=== PATIENT | male | born 1960 | race Two or more races ===

== ENCOUNTER 2017-12-24 07:28 | Emergency (ER) | payer OTHER ==
[~2017-12-24] VITALS: Ht 175.3 cm; Wt 92.1 kg
[2017-12-24] MEDS ORDERED: ULTRACET PO (12:53)
== END 2017-12-24 13:22 | disposition home or self-care (01) ==
LOC: ER 07:28
DX: G43.909 Migraine, unspecified, not intractable, without status migrainosus (principal)

== ENCOUNTER 2019-04-29 08:13 | Outpatient (CLI) | payer OTHER ==
[~2019-04-29 08:13] MED LIST: ULTRACET PO
== END 2019-04-29 08:20 | disposition home or self-care (01) ==
LOC: LAB 08:13
DX: R39.15 Urgency of urination (principal); R35.8 Other polyuria; Z12.5 Encounter for screening for malignant neoplasm of prostate; Z12.11 Encounter for screening for malignant neoplasm of colon

== ENCOUNTER 2019-04-30 08:44 | Outpatient (CLI) | payer OTHER | END 2019-04-30 15:00 | disposition home or self-care (01) | LOC: LAB 08:44 | DX: R39.15 Urgency of urination (principal); R35.8 Other polyuria; Z12.5 Encounter for screening for malignant neoplasm of prostate; Z12.11 Encounter for screening for malignant neoplasm of colon ==

== ENCOUNTER 2020-03-09 07:38 | Outpatient (CLI) | payer OTHER | END 2020-03-09 07:45 | disposition home or self-care (01) | LOC: LAB 07:38 | PROVIDERS: ATTEND Internal Medicine Cardiovascular Disease | DX: I10 Essential (primary) hypertension (principal); E11.9 Type 2 diabetes mellitus without complications; E03.8 Other specified hypothyroidism; E78.2 Mixed hyperlipidemia; N40.0 Benign prostatic hyperplasia without lower urinary tract symptoms; E55.9 Vitamin D deficiency, unspecified; J44.9 Chronic obstructive pulmonary disease, unspecified ==

== ENCOUNTER 2020-03-09 09:52 | Outpatient (CLI) | payer OTHER | END 2020-03-09 09:59 | disposition home or self-care (01) | LOC: NUCLEAR 09:52 | PROVIDERS: ATTEND Internal Medicine Cardiovascular Disease | DX: I10 Essential (primary) hypertension (principal) ==

== ENCOUNTER 2020-11-15 07:03 | Outpatient (CLI) | payer OTHER | END 2020-11-15 07:04 | disposition home or self-care (01) | LOC: LAB 07:03 | PROVIDERS: ATTEND Specialist | DX: N40.1 Benign prostatic hyperplasia with lower urinary tract symptoms (principal) ==

== ENCOUNTER 2020-12-08 07:47 | Outpatient (CLI) | payer OTHER | END 2020-12-08 07:54 | disposition home or self-care (01) | LOC: SONOGRAMA 07:47 → MAMO-SONO 08:00 | PROVIDERS: ATTEND Specialist | DX: K76.0 Fatty (change of) liver, not elsewhere classified (principal); Q44.6 Cystic disease of liver ==

== ENCOUNTER → 2020-12-22 07:31 | Outpatient (CLI) | payer OTHER | END | disposition home or self-care (01) | LOC: LAB 07:31 | PROVIDERS: ATTEND Specialist | DX: N40.1 Benign prostatic hyperplasia with lower urinary tract symptoms (principal); N13.39 Other hydronephrosis ==

== ENCOUNTER 2020-12-31 07:15 | Outpatient (CLI) | payer OTHER | END 2020-12-31 07:17 | disposition home or self-care (01) | LOC: TOM 07:15 | PROVIDERS: ATTEND Specialist | DX: N32.3 Diverticulum of bladder (principal); Q44.6 Cystic disease of liver; N13.39 Other hydronephrosis ==

== ENCOUNTER 2021-02-11 16:16 | Emergency (ER) | payer OTHER ==
[~2021-02-11] VITALS: Ht 175.3 cm; Wt 99.3 kg
[2021-02-11] MEDS ORDERED: LISINOPRIL20 MG (16:33)
== END 2021-02-11 21:17 | disposition home or self-care (01) ==
LOC: ER 16:16
DX: N40.0 Benign prostatic hyperplasia without lower urinary tract symptoms (principal); N39.0 Urinary tract infection, site not specified; R19.09 Other intra-abdominal and pelvic swelling, mass and lump

== ENCOUNTER 2021-03-04 08:18 | Outpatient (CLI) | payer OTHER ==
[~2021-03-04 08:18] MED LIST changes: +LISINOPRIL20 MG
== END 2021-03-04 08:20 | disposition home or self-care (01) ==
LOC: LAB 08:18
DX: D68.8 Other specified coagulation defects (principal); Z01.818 Encounter for other preprocedural examination

== ENCOUNTER 2021-03-04 09:03 | Outpatient (CLI) | payer OTHER | END 2021-03-04 09:20 | disposition home or self-care (01) | LOC: RAD 09:03 | DX: I10 Essential (primary) hypertension (principal) ==

== ENCOUNTER → 2021-04-25 07:11 | Outpatient (CLI) | payer OTHER | END | disposition home or self-care (01) | LOC: LAB 07:11 | PROVIDERS: ATTEND Internal Medicine Hematology & Oncology | DX: C67.4 Malignant neoplasm of posterior wall of bladder (principal); N13.30 Unspecified hydronephrosis ==

== ENCOUNTER 2021-04-28 07:11 | Outpatient (CLI) | payer OTHER | END 2021-04-28 07:17 | disposition home or self-care (01) | LOC: LAB 07:11 | DX: C67.4 Malignant neoplasm of posterior wall of bladder (principal); N13.30 Unspecified hydronephrosis ==

== ENCOUNTER 2021-05-23 06:59 | Outpatient (CLI) | payer OTHER | END 2021-05-23 07:00 | disposition home or self-care (01) | LOC: LAB 06:59 | PROVIDERS: ATTEND Internal Medicine Hematology & Oncology | DX: C67.4 Malignant neoplasm of posterior wall of bladder (principal) ==

== ENCOUNTER 2021-05-30 06:35 | Outpatient (CLI) | payer OTHER | END 2021-05-30 06:46 | disposition home or self-care (01) | LOC: LAB 06:35 | PROVIDERS: ATTEND Internal Medicine Hematology & Oncology | DX: C67.4 Malignant neoplasm of posterior wall of bladder (principal) ==

== ENCOUNTER 2021-06-06 06:53 | Outpatient (CLI) | payer OTHER | END 2021-06-06 06:56 | disposition home or self-care (01) | LOC: LAB 06:53 | PROVIDERS: ATTEND Internal Medicine Hematology & Oncology | DX: C67.4 Malignant neoplasm of posterior wall of bladder (principal) ==

== ENCOUNTER 2021-06-13 06:47 | Outpatient (CLI) | payer OTHER | END 2021-06-13 06:51 | disposition home or self-care (01) | LOC: LAB 06:47 | PROVIDERS: ATTEND Internal Medicine Hematology & Oncology | DX: C67.4 Malignant neoplasm of posterior wall of bladder (principal) ==

== ENCOUNTER 2021-06-20 07:04 | Outpatient (CLI) | payer OTHER | END 2021-06-20 07:14 | disposition home or self-care (01) | LOC: LAB 07:04 → CIR.AMB 07:04 → LAB 07:14 | DX: D68.8 Other specified coagulation defects (principal); Z01.818 Encounter for other preprocedural examination ==

== ENCOUNTER 2021-06-27 07:22 | Outpatient (CLI) | payer OTHER | END 2021-06-27 07:23 | disposition home or self-care (01) | LOC: LAB 07:22 | PROVIDERS: ATTEND Internal Medicine Hematology & Oncology | DX: N32.3 Diverticulum of bladder (principal); C67.4 Malignant neoplasm of posterior wall of bladder ==

== ENCOUNTER 2021-07-11 07:05 | Outpatient (CLI) | payer OTHER | END 2021-07-11 07:12 | disposition home or self-care (01) | LOC: LAB 07:05 | PROVIDERS: ATTEND Internal Medicine Hematology & Oncology | DX: C67.4 Malignant neoplasm of posterior wall of bladder (principal) ==

== ENCOUNTER 2021-07-18 06:47 | Outpatient (CLI) | payer OTHER | END 2021-07-18 06:53 | disposition home or self-care (01) | LOC: LAB 06:47 | PROVIDERS: ATTEND Internal Medicine Hematology & Oncology | DX: C67.4 Malignant neoplasm of posterior wall of bladder (principal) ==

== ENCOUNTER 2021-07-25 06:53 | Outpatient (CLI) | payer OTHER | END 2021-07-25 07:05 | disposition home or self-care (01) | LOC: LAB 06:53 | PROVIDERS: ATTEND Internal Medicine Hematology & Oncology | DX: C67.4 Malignant neoplasm of posterior wall of bladder (principal) ==

== ENCOUNTER 2021-08-02 06:35 | Outpatient (CLI) | payer OTHER | END 2021-08-02 07:00 | disposition home or self-care (01) | LOC: TOM 06:35 | PROVIDERS: ATTEND Internal Medicine Hematology & Oncology | DX: C67.4 Malignant neoplasm of posterior wall of bladder (principal); N32.3 Diverticulum of bladder ==

== ENCOUNTER 2021-08-04 07:03 | Outpatient (CLI) | payer OTHER | END 2021-08-04 15:00 | disposition home or self-care (01) | LOC: LAB 07:03 | PROVIDERS: ATTEND Internal Medicine Hematology & Oncology | DX: C67.4 Malignant neoplasm of posterior wall of bladder (principal) ==

== ENCOUNTER 2021-11-21 07:38 | Outpatient (CLI) | payer OTHER | END 2021-11-21 07:40 | disposition home or self-care (01) | LOC: NUCLEAR 07:38 | PROVIDERS: ATTEND Urology | DX: I10 Essential (primary) hypertension (principal) | CPT/HCPCS: 78452; 93017; A9500; J0150 ==

== ENCOUNTER → 2021-12-12 07:24 | Outpatient (CLI) | payer OTHER | END | disposition home or self-care (01) | LOC: LAB 07:24 | PROVIDERS: ATTEND Urology | DX: R31.1 Benign essential microscopic hematuria (principal) ==

== ENCOUNTER 2021-12-27 07:18 | Outpatient (CLI) | payer OTHER | END 2021-12-27 07:29 | disposition home or self-care (01) | LOC: LAB 07:18 | PROVIDERS: ATTEND Radiology Diagnostic Radiology | DX: I10 Essential (primary) hypertension (principal); C67.9 Malignant neoplasm of bladder, unspecified; N13.1 Hydronephrosis with ureteral stricture, not elsewhere classified ==

== ENCOUNTER 2022-02-13 07:19 | Outpatient (CLI) | payer OTHER | END 2022-02-13 07:20 | disposition home or self-care (01) | LOC: LAB 07:19 | DX: N39.0 Urinary tract infection, site not specified (principal); C67.9 Malignant neoplasm of bladder, unspecified ==

== ENCOUNTER → 2022-02-20 | Outpatient (CLI) | payer OTHER | END | disposition home or self-care (01) | LOC: RAD 07:24 | PROVIDERS: ATTEND Urology | DX: C67.9 Malignant neoplasm of bladder, unspecified (principal) ==

== ENCOUNTER 2022-03-03 08:09 | Outpatient (CLI) | payer OTHER | END 2022-03-03 08:11 | disposition home or self-care (01) | LOC: LAB 08:09 | PROVIDERS: ATTEND Specialist | DX: N39.0 Urinary tract infection, site not specified (principal); C67.9 Malignant neoplasm of bladder, unspecified ==

== ENCOUNTER 2022-04-04 06:29 | Outpatient (CLI) | payer OTHER | END 2022-04-04 07:10 | disposition home or self-care (01) | LOC: SONOGRAMA 06:29 | PROVIDERS: ATTEND Urology | DX: R31.1 Benign essential microscopic hematuria (principal) ==

== ENCOUNTER 2022-04-11 07:07 | Outpatient (CLI) | payer OTHER | END 2022-04-11 07:14 | disposition home or self-care (01) | LOC: LAB 07:07 | DX: N30.00 Acute cystitis without hematuria (principal); R31.1 Benign essential microscopic hematuria ==

== ENCOUNTER 2022-09-29 06:23 | Outpatient (CLI) | payer OTHER | END 2022-09-29 06:25 | disposition home or self-care (01) | LOC: LAB 06:23 | DX: C67.9 Malignant neoplasm of bladder, unspecified (principal); N39.0 Urinary tract infection, site not specified ==

== ENCOUNTER 2022-10-05 06:52 | Outpatient (CLI) | payer OTHER | END 2022-10-05 07:10 | disposition home or self-care (01) | LOC: TOM 06:52 | DX: C67.9 Malignant neoplasm of bladder, unspecified (principal) ==

== ENCOUNTER → 2022-11-03 06:16 | Outpatient (CLI) | payer OTHER | END | disposition home or self-care (01) | LOC: LAB 06:16 | PROVIDERS: ATTEND Urology | DX: N30.00 Acute cystitis without hematuria (principal); R97.20 Elevated prostate specific antigen [PSA]; R31.0 Gross hematuria ==

== ENCOUNTER 2022-11-03 07:02 | Outpatient (CLI) | payer OTHER | END 2022-11-03 07:07 | disposition home or self-care (01) | LOC: SONOGRAMA 07:02 | PROVIDERS: ATTEND Urology | DX: N40.1 Benign prostatic hyperplasia with lower urinary tract symptoms (principal); R33.9 Retention of urine, unspecified ==

== ENCOUNTER 2023-04-12 07:36 | Emergency (ER) | payer OTHER ==
[~2023-04-12] VITALS: Ht 175.3 cm; Wt 96.6 kg
[2023-04-12] MEDS ORDERED: NORVASC10 MG PO (08:00)
== END 2023-04-12 12:54 | disposition home or self-care (01) ==
LOC: ER 07:38
DX: S13.4XXA Sprain of ligaments of cervical spine, initial encounter (principal); V43.52XA Car driver injured in collision with other type car in traffic accident, initial encounter; Y93.89 Activity, other specified; Y92.413 State road as the place of occurrence of the external cause; Z85.46 Personal history of malignant neoplasm of prostate; Z85.51 Personal history of malignant neoplasm of bladder; I10 Essential (primary) hypertension; M62.838 Other muscle spasm